=== PATIENT | female | born 1980 | race Caucasian/White ===

== ENCOUNTER 2020-04-28 22:23 | Emergency (ER) | payer OTHER ==
[~2020-04-28] VITALS: Ht 165.1 cm; Wt 81.6 kg
[2020-04-28] MEDS ORDERED: OLANZAPINE5 MG PO (23:00)
[2020-04-28] MEDS ORDERED: HYDROXYZINE HCL25 MG PO (23:00)
== END 2020-04-29 01:45 | disposition home or self-care (01) ==
LOC: ED 22:23
DX: F41.9 Anxiety disorder, unspecified (principal); F17.200 Nicotine dependence, unspecified, uncomplicated; Z88.8 Allergy status to other drugs, medicaments and biological substances; Z88.5 Allergy status to narcotic agent; Z79.899 Other long term (current) drug therapy
CPT/HCPCS: 80053; 80176; 81001; 84443; 84703; 85025; 99283

== ENCOUNTER 2020-06-01 10:06 | Emergency (ER) | payer OTHER ==
[~2020-06-01] VITALS: Ht 165.1 cm; Wt 81.6 kg
[~2020-06-01 10:06] MED LIST: HYDROXYZINE HCL25 MG PO; OLANZAPINE5 MG PO
== END 2020-06-01 12:30 ==
LOC: ED 10:06
DX: F41.1 Generalized anxiety disorder (principal); Z20.822 Contact with and (suspected) exposure to COVID-19; F17.200 Nicotine dependence, unspecified, uncomplicated; Z88.8 Allergy status to other drugs, medicaments and biological substances; Z88.5 Allergy status to narcotic agent; Z79.899 Other long term (current) drug therapy
CPT/HCPCS: 80053; 80176; 81001; 84443; 84703; 85025; 99283; 99406; C9803; U0003